=== PATIENT | female | born 2005 | race Caucasian/White ===

== ENCOUNTER 2025-01-15 11:45 | Emergency (ER) | payer MEDICAID, OTHER ==
[~2025-01-15] VITALS: Ht 167.6 cm; Wt 72.6 kg
[2025-01-15 11:50] VITALS: BP 125/74; O2SAT 98
== END 2025-01-15 12:07 | disposition left against medical advice (07) ==
LOC: ER 11:45
DX: O26.91 Pregnancy related conditions, unspecified, first trimester (principal); M54.50 Low back pain, unspecified; M53.3 Sacrococcygeal disorders, not elsewhere classified; M85.859 Other specified disorders of bone density and structure, unspecified thigh; Z87.440 Personal history of urinary (tract) infections; Z88.0 Allergy status to penicillin; Z3A.11 11 weeks gestation of pregnancy; Z53.29 Procedure and treatment not carried out because of patient's decision for other reasons
CPT/HCPCS: A4606; A4663